=== PATIENT | female | born 1975 | race Two or more races ===

== ENCOUNTER 2020-05-06 11:05 | Inpatient (IN) | payer MEDICAID ==
[2020-05-04 11:27] LABS: APPEARANCE,URINE SLIGHTLY CLOUDY; BASOPHILS % (AUTO) 1.4 % (0.0-2.0); BILIRUBIN, URINE NEGATIVE (NEGATIVE); COLOR,URINE PALE YELLOW; EOSINOPHILS % (AUTO) 2.2 % (0.0-3.0); GLUCOSE, URINE (UA) NEGATIVE (NEGATIVE); HEMATOCRIT 38.9 % (37.0-47.0); HEMOGLOBIN 12.9 G/DL (12.0-16.0); KETONES,URINE NEGATIVE (NEGATIVE); LEUKOCYTE ESTERASE ,URINE 2+ (NEGATIVE); LYMPHOCYTES % (AUTO) 33.5 % (20.0-45.0); MEAN CORPUSCULAR VOLUME 86 FL (80-99); MONOCYTES % (AUTO) 6.4 % (1.0-10.0); NEUTROPHILS % (AUTO) 56.5 % (45.0-75.0); NITRITE,URINE NEGATIVE (NEGATIVE); PH,URINE 8 (4.5-8.0); PLATELET COUNT 229 K/UL (150-450); PROTEIN,URINE NEGATIVE (NEGATIVE); RED BLOOD COUNT 4.51 M/UL (4.20-5.40); RED CELL DISTRIBUTION WIDTH 11.2 % (11.6-14.8); UROBILINOGEN,URINE NORMAL MG/DL (0.0-1.0); WHITE BLOOD COUNT 6.6 K/UL (4.8-10.8)
[2020-05-04 11:59] LABS: ANION GAP 9 mmol/L (5-15); BLOOD UREA NITROGEN 12 mg/dL (7-18); CALCIUM 8.8 MG/DL (8.5-10.1); CARBON DIOXIDE 29 MMOL/L (21-32); CHLORIDE 105 MMOL/L (98-107); CREATININE 0.6 MG/DL (0.55-1.30); POTASSIUM 3.9 MMOL/L (3.5-5.1); SODIUM 143 MMOL/L (136-145)
--- NOTE | 2020-05-04 18:13 | Diagnostic Imaging Report ---
Indication: Cough Technique: 2 views of the chest Comparison: None Findings: Lungs and pleural spaces are clear. The heart size is normal. The bones are unremarkable. No significant interim change. Impression: Negative
--- NOTE | 2020-05-05 13:29 | Pre-op HX & Phy Repo 2 SIG ---
DATE OF ADMISSION: 05/06/2020 DATE OF PLANNED SURGERY: Scheduled for surgery, 05/06/2020. HISTORY OF PRESENT ILLNESS: The patient is a 45-year-old female in overall stable health with invasive ductal carcinoma of the right breast. She is scheduled to undergo right breast partial mastectomy and right axillary lymph node biopsy. The patient presented with a right breast mass. Imaging revealed a 3.5 cm mass in the upper outer quadrant of the right breast with nipple retraction. The mass measured 3.4 x 2.2 x 3.3 cm at 9 o'clock 3 cm from the nipple. Core biopsy revealed invasive ductal carcinoma, estrogen receptor positive, progesterone receptor negative, HER2-negative. Ki-67 was low at 8%. She was seen by Oncology, who recommended proceeding with surgery as a primary intervention followed by additional therapy based on final pathology. PAST MEDICAL HISTORY/MEDICATIONS: None. ALLERGIES: None. 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 REVIEW OF SYSTEMS: 5, para 5. She has also had a tubal ligation. She has irregular menstrual periods. PHYSICAL EXAMINATION: GENERAL: The patient is 5 feet 1 inch, 238 pounds. VITAL SIGNS: Within normal limits. HEENT: Within normal limits. LUNGS: Clear. HEART: Regular rhythm. BREASTS: Moderate in size and ptotic. Left breast, unremarkable. Right breast has a 3 to 4 cm palpable mass in the upper outer quadrant between the areolar border and the periphery without any visible retraction to the nipple areolar complex and no fixation to the underlying chest wall. There is no palpable axillary or supraclavicular lymphadenopathy. Left breast unremarkable. ABDOMEN: Soft. PELVIC: Per primary care. RECTAL: Per primary care. EXTREMITIES: Without edema. NEUROLOGIC: Physiologic. IMPRESSION: Invasive ductal carcinoma, right breast. PLAN: The patient will undergo right breast partial mastectomy and right axillary lymph node dissection. I have had a full discussion with her regarding the nature of her condition, the nature of the surgery, indications, alternatives, options, and risks including bleeding, infection, scarring or deformity of breast and/or nipple, need for additional procedures including surgery, chemotherapy, hormonal blockade, radiation therapy based on final pathology, neuritis or neuralgia, etc. All questions have been answered. She understands and agrees to proceed. Don Javi Graf DR: ANDREW JOB#: [id number] CC:
[~2020-05-06] VITALS: Ht 154.9 cm; Wt 108.9 kg
[2020-05-06] VITALS (13 sets, daily range): BP systolic 105–137; BP diastolic 52–87
[2020-05-06] MEDS ORDERED: Bacitracin 50000 Units Vial ONE (11:34)
[2020-05-06] MEDS ORDERED: NeoSporin Gu Irrig 1ml Amp IRRIG ONE (11:34)
[2020-05-06] MEDS ORDERED: NS Irrig 1000ml IRRIG ONE ×2 (12:15→13:13)
--- NOTE | 2020-05-06 12:43 | Anethesia Preoperative Eval ---
Anesthesia Pre-op PMH/ROS General Date of Evaluation: May 06, 2020 Time of Evaluation: 12:48 Anesthesiologist: Sherman ASA Score: ASA 3 Mallampati Score Class I : Soft palate, uvula, fauces, pillars visible Class II: Soft palate, uvula, fauces visible Class III: Soft palate, base of uvula visible Class IV: Only hard plate visible Mallampati Classification: Class III Surgeon: Homar Diagnosis: Invasive Ductal Carcinoma, R Breast Surgical Procedure: R Breast Partial Mastectomy, Lymph Node Dissection Anesthesia History: none Family History: no anesthesia problems Allergies: Coded Allergies: No Known Allergies (Unverified , 05/06/20) Medications: see eMAR Patient NPO?: Yes Past Medical History Cardiovascular: Reports: HTN Hematology/Immune: Reports: other - Breast CA Right Other: obesity - Morbid BMI 45 Anesthesia Pre-op Phys. Exam Physician Exam Last Vital Signs Date Time Temp Pulse Resp B/P (MAP) Pulse Ox O2 Delivery O2 Flow Rate FiO2 05/06/20 11:43 Room Air 05/06/20 11:35 96.7 66 18 118/64 98 Constitutional: NAD Neurologic: CN 2-12 intact Cardiovascular: RRR Respiratory: CTA Gastrointestinal: S/NT/ND Airway Exam Mallampati Score: Class III MO: limited ROM: limited Teeth: missing, intact Anesthesia Pre-op A/P Labs Urine Test Test 05/06/20 11:15 Urine HCG, Qualitative Negative (NEGATIVE) Risk Assessment & Plan Assessment: ASA 3 Plan: GA, SED Status Change Before Surgery: No Pre-Antibiotics Dru Grams Ancef IV Given Within 1 Hr of Incision: Yes Time Given: 13:06 Jarrett Whitaker MD May 06, 2020 12:43
[2020-05-06] MEDS ORDERED: Atropine Sulfate 0.4mg/ml inj IVP PRN (12:45)
[2020-05-06] MEDS ORDERED: Metoclopramide 10mg/2ml Inj IVP PRN ×2 (12:45→14:30)
[2020-05-06] MEDS ORDERED: HYDROcodone/Acetamin 5/325 tab ORAL PRN ×2 (12:45→14:30)
[2020-05-06] MEDS ORDERED: Ketorolac 30mg Inj IV PRN ×2 (12:45)
[2020-05-06] MEDS ORDERED: Labetalol 5mg/ml 20ml vial IV PRN (12:45)
[2020-05-06] MEDS ORDERED: Hydromorphone 0.5mg/0.5ml inj IVP PRN (12:45)
[2020-05-06] MEDS ORDERED: LORazepam Inj 2mg/ml 1ml IV PRN (12:45)
[2020-05-06] MEDS ORDERED: Acetaminophen (Non formulary) 100 ML IV ONE (12:45)
[2020-05-06] MEDS ORDERED: LR 1000ml 1,000 ML IVLG SCH (12:45)
[2020-05-06] MEDS ORDERED: fentaNYL 100 mcg/2 mL IV PRN (12:45)
[2020-05-06] MEDS ORDERED: HYDROcodone/Acetamin 7.5/325 tab ORAL PRN (12:45)
[2020-05-06] MEDS ORDERED: DiphenhydrAMINE 50mg/ml Inj IVP PRN (12:45)
[2020-05-06] MEDS ORDERED: Midazolam 2mg/2ml Inj IVP PRN (12:45)
[2020-05-06] MEDS ORDERED: oxyCODONE HCL/Acetaminophen 5/325mg ORAL PRN (12:45)
[2020-05-06] MEDS ORDERED: Meperidine 25mg/0.5ml Inj (FOR RIGORS ONLY) IV PRN (12:45)
[2020-05-06] MEDS ORDERED: Sodium Chloride 10ml vial INJ ONE (12:50)
[2020-05-06] MEDS ORDERED: Lidocaine 1% MPF 10mg/ml 5ml ONE (12:50)
[2020-05-06] MEDS ORDERED: Midazolam 2mg/2ml Inj ONE (12:51)
[2020-05-06] MEDS ORDERED: fentaNYL 100 mcg/2 mL IV ONE (12:51)
--- NOTE | 2020-05-06 13:02 | Immediate Post-Op Evaluation ---
Immediate Post-Op Evalulation Immediate Post-Op Evalulation Procedure: R Breast Partial Mastectomy, Lymph Node Dissection Date of Evaluation: May 06, 2020 Time of Evaluation: 14:53 IV Fluids: 700 LR Blood Products: 0 Estimated Blood Loss: 25 Urinary Output: 0 Blood Pressure Systolic: 123 Blood Pressure Diastolic: 80 Pulse Rate: 62 Respiratory Rate: 16 O2 Sat by Pulse Oximetry: 100 Temperature (Fahrenheit): 97.1 Pain Score (1-10): 2 Nausea: No Vomiting: No Complications 0 Patient Status: awake, reacts, patent, none Hydration Status: adequate Dru Grams Ancef IV Given Within 1 Hr of Incision: Yes Time Given: 13:06 Jarrett Whitaker MD May 06, 2020 13:02
--- NOTE | 2020-05-06 13:08 | Pre-Procedure Note/Attestation ---
Pre-Procedure Note/Attestation Complete Prior to Procedure Planned Procedure: right Procedure Narrative: right breast partial mastectomy and reight axillary lymph node biopsy Indications for Procedure Pre-Operative Diagnosis: invasive ductal carcinoma right breast Attestation I attest that I discussed the nature of the procedure; its benefits; risks and complications; and alternatives (and the risks and benefits of such alternatives), prior to the procedure, with the patient (or the patient's legal merchandiser retail representative). I attest that, if there was a reasonable possibility of needing a blood transfusion, the patient (or the patient's legal merchandiser retail representative) was given the [facility] standardized written summary, pursuant to the Noe Latrell Blood Safety Act ([place] Health and Safety Code # 1645, as amended). I attest that I re-evaluated the patient just prior to the surgery and that there has been no change in the patient's H&P, except as documented below:none Eriberto Graf MD May 06, 2020 13:08
[2020-05-06] MEDS ORDERED: HYDROmorphone 1mg/ml Carpuject SUBQ PRN (14:30)
--- NOTE | 2020-05-06 14:38 | Brief Operative Note ---
Immediate Post Operative Note Operative Note Pre-op Diagnosis: invasive ductal carcinoma right breast Procedure: right breast partial mastectomy with right axillary lymph node biopsy Post-op Diagnosis: same Post-op Diagnosis: same as pre-op Findings: consistent w/pre-op dx studies Surgeon: lamine Anesthesiologist: lexi Anesthesia: general Specimen: yes - right breast partial mastectomy, right axillary lymph nodes Complications: none Condition: stable Fluids: see anesthesia record Estimated Blood Loss: minimal Drains: MARI Implant(s) used?: No Eriberto Graf MD May 06, 2020 14:38
--- NOTE | 2020-05-06 15:45 | Operative Note - Dictated ---
DATE OF OPERATION: 05/06/2020 SURGEON: Eriberto Graf MD. BIOLOGIST: None. ANESTHESIOLOGIST: Jarrett Whitaker MD. TYPE OF ANESTHESIA: General. PREOPERATIVE DIAGNOSIS: Invasive ductal carcinoma, right breast. POSTOPERATIVE DIAGNOSIS: Invasive ductal carcinoma, right breast. OPERATION PERFORMED: Right breast partial mastectomy and right axillary lymph node biopsy. DESCRIPTION OF PROCEDURE: The patient was taken to the operating room and under general anesthesia with sequential compression device stockings in place, she was prepped and draped in the usual fashion. The palpable 3 cm mass was in the upper outer quadrant of the right breast. A curvilinear incision was made achieving hemostasis with cautery and dissecting flaps circumferentially. A wide resection was performed down to the chest wall. The mass itself was encapsulated. The specimen was marked with sutures placed anterior, medial and superior and then based on the pathology evaluation, although the lesion was well encapsulated, I took additional anterior superior margin. The field was irrigated with sterile water. Hemostasis carefully achieved with cautery. The incision closed with continuous 2-0 Vicryl deep dermal subcutaneous sutures followed by continuous 4-0 Monocryl subcuticular suture. A vertical right axillary incision was made achieving hemostasis with cautery and incising the clavipectoral fascia. Lower level lymph nodes were identified and resected using the Thunderbeat vessel sealing electrosurgical device. Pathology confirmed the presence of lymph node tissue within the specimen. The field was irrigated with sterile water. Hemostasis carefully achieved with cautery. The clavipectoral fascia was closed with interrupted 2-0 Vicryl, subcutaneous tissues closed with interrupted 3-0 Vicryl, and the skin closed with continuous 4-0 Monocryl subcuticular suture. Mastisol and Steri-Strips were applied to both incisions followed by dry sterile dressing. I did place a large flat Gera-Cote into the axilla through a separate stab incision inferolateral and sutured to the skin with 2-0 nylon suture. The patient tolerated the procedure well and left the operating room in good condition. Eriberto Graf M.D. : ANDREW JOB#: [id number] CC:
--- NOTE | 2020-05-06 16:16 | NUR ---
NURSE NOTES: Patient arrived on unit. Stable. Denies pain or SOB. Breathing is even and unlabored. Surgical dressing c/d/i. Surgical bra in place. MARI patent and draining very little bloody output. Patient oriented to room, call light, and unit. Patient instructed to use call light for assistance, verbalized understanding. All safety measures provided. Patient is in bed in locked and lowest position with call light within reach. All needs met at this time. Will continue to monitor.
--- NOTE | 2020-05-06 17:21 | NUR ---
NURSE NOTES: MARI drain teaching given to patient and son Forrest. Will reinforce teaching as needed.
--- NOTE | 2020-05-06 17:42 | NUR ---
NURSE NOTES: Patient voided in toilet. Patient assisted back to bed by staff without incident.
[2020-05-06] MEDS: D5 1/2NS w/KCl 20mEq 1,000 ML IV SCH (18:51)
--- NOTE | 2020-05-06 18:53 | NUR ---
NURSE NOTES: MARI: 10cc bloody output. Patient ambulated to bathroom with staff assist without incident Void x1.
--- NOTE | 2020-05-06 19:53 | NUR ---
NURSE HAND-OFF: Important Events on Shift:s/p surgery, hydration, void, monitor MARI output. Patient Status: stable Diet: regular Pending Orders: n/a Pending Results/Labs:n/a Pending MD notification:n/a Latest Vital Signs: Temperature 97.5 , Pulse 78 , B/P 113 /64 , Respiratory Rate 19 , O2 SAT 97 , Room Air, O2 Flow Rate . Vital Sign Comment: n/a Latest Vergara Fall Score: 35 Fall Risk: Medium Risk Safety Measures: Call light Within Reach, Bed Alarm , Side Rails Side Rails x2, Bed position Low and Locked. Fall Precautions: Patient Fall Education Report given to Shaina DOUGHERTY.
--- NOTE | 2020-05-06 20:00 | NUR ---
NURSE NOTES: Received patient in bed, aox4. Denies pain at this time. Surgical dressing c/d/i with surgical bra. MARI drain secured and compressed. IVF infusing as ordered. Patient able to ambulate to bathroom with minimal assist/ supervision. Will continue with plan of care. Addendum: 05/06/20 at 2214 by YUMIKO DAVID RN RN Return demonstration done by patient with MARI drain emptying and compressing.
[2020-05-06] MEDS: ceFAZolin sod 1 GM in D5W 55 ML IVPB SCH (20:48)
[2020-05-07 04:00] VITALS: BP 109/62
[2020-05-07] MEDS: ceFAZolin sod 1 GM in D5W 55 ML IVPB SCH (04:01)
--- NOTE | 2020-05-07 07:23 | NUR ---
NURSE NOTES: Report received from Shaina DOUGHERTY, rounds made. Patient AOx4 calm. Respirations even/unlabored on RA. IVF D5 1/2 NS +20 KCL at 75 ml/hr infusing to LFA, site asymptomatic. Tolerating regular diet for breakfast, no NV. Denies pain at this time. Surgical bra on, RUE warm, wiggles, pulse palpable, normal color, able to perform active ROM. Right axillary/breast surgical site CDI, MARI x1 to right axillary, serosanguineous output noted in bulb and tubing. Encouraged IS. Call light in reach, bed in lowest position, will continue to monitor.
--- NOTE | 2020-05-07 07:30 | NUR ---
NURSE HAND-OFF: Important Events on Shift:[uneventful. patient rested] Patient Status: [stable, eating] Diet: [Regular] Pending Orders: [] Pending Results/Labs:[] Pending MD notification:[] Latest Vital Signs: Temperature 97.9 , Pulse 74 , B/P 109 /62 , Respiratory Rate 18 , O2 SAT 96 , Room Air, O2 Flow Rate . Vital Sign Comment: [stable] Latest Vergara Fall Score: 35 Fall Risk: Medium Risk Safety Measures: Call light Within Reach, Bed Alarm , Side Rails Side Rails x2, Bed position Low and Locked. Fall Precautions: Patient Fall Education Report given to [Carli DOUGHERTY].
[2020-05-07 08:00] VITALS: BP 116/53
[2020-05-07] MEDS: D5 1/2NS w/KCl 20mEq 1,000 ML IV SCH (08:20)
--- NOTE | 2020-05-07 10:00 | NUR ---
NURSE NOTES: Right axillary/breast surgical site dressing changed with Dr. Graf. Surgical bra and MARI remains in place. Site CDI. Product Applications Engineer at bedside. Patient able to communicate needs/questions/concerns.
--- NOTE | 2020-05-07 10:22 | General Progress Note ---
Progress Note Progress Note AVSS Feels well not needing analgesics Right breast and axilla incisions clean with intact steristrips MARI 11 cc serosang Imp: doing well Plan: discharge with supplies/instructions/limitations provided/discussed Rx none f/u office 05/12 Eriberto Graf MD May 07, 2020 10:22
--- NOTE | 2020-05-07 10:59 | 48 Hour Post Anesthesia Eval ---
Post Anesthesia Evaluation Procedure: R Breast Partial Mastectomy, Lymph Node Dissection Date of Evaluation: May 07, 2020 Time of Evaluation: 10:58 Blood Pressure Systolic: 116 0: 72 Pulse Rate: 68 Respiratory Rate: 20 Temperature (Fahrenheit): 97.6 O2 Sat by Pulse Oximetry: 98 Airway: patent Nausea: No Vomiting: No Pain Intensity: 2 Hydration Status: adequate Cardiopulmonary Status: stable Mental Status/LOC: patient returned to baseline Follow-up Care/Observations: n/a Post-Anesthesia Complications: none Follow-up care needed: ready to discharge Hollis Hahn MD May 07, 2020 10:59
[2020-05-07 12:00] VITALS: BP 113/58
[2020-05-07] MEDS ORDERED: LR 1000ml ONE (13:00)
[2020-05-07] MEDS ORDERED: NS Irrig 1000ml ONE (13:00)
[2020-05-07] MEDS ORDERED: Sterile Water Irrig 1000ml IRRIG ONE (13:00)
--- NOTE | 2020-05-07 13:10 | NUR ---
NURSE NOTES: Discharge instructions reviewed with patient and son (translating at bedside), verbalized understanding. Educated patient and son on MARI care, emptying four times daily, keeping log (and to bring to follow up appointment with Dr. Graf next Monday), supplies provided and reviewed (gloves, measuring cups, 4x4 gauze and paper tape), infection control and proper hand washing. Patient demonstrated MARI care correctly. LFA IV discontinued, no active bleeding. ID bracelet cut off. Patient ambulated down to [facility] with Nilda [place], in stable condition. Discharged home at 1310.
--- NOTE | 2020-05-07 16:34 | NUR ---
CASE MANAGEMENT: INITIAL REVIEW 45YR OLD FEMALE FROM HOME CC:RIGHT BREAST CARCINOMA SI:INVASIVE RIGHT BREAST CARCINOMA 97.4 73 19 124/73 99% ON RA IS:IN SURGERY FOR RIGHT BREAST PARTIAL MASTECTOMY \: 3E MED SURG UNIT DCP: HOME WHEN STABLE PLAN: NPO ADVANCE DIET TOLERATED CONT ENCOURAGE INCENTIVE SPIROMETER NEURO CHECKS DVT PROPHYLAXIS ENCOURAGE AMBULATION ANTICIPATE DC WHEN STABLE ~POSSIBLE AM
== END 2020-05-07 13:10 | disposition home or self-care (01) | DRG 363 ==
LOC: SUR 11:05 → 3E 16:50
PROC: 07B50ZX Excision of Right Axillary Lymphatic, Open Approach, Diagnostic (ICD-10-PCS; 2020-05-06)
PROC: 0HBT0ZZ Excision of Right Breast, Open Approach (ICD-10-PCS; principal; 2020-05-06 13:00)
DX: C50.411 Malignant neoplasm of upper-outer quadrant of right female breast (principal); Z17.1 Estrogen receptor negative status [ER-]
CPT/HCPCS: 36415; 71046; 80048; 81001; 81025; 85025; 85610; 85730; 93005; 94003; 94150; J2180; J2250; J2405; U0002